=== PATIENT | female | born 1955 ===

== ENCOUNTER 2023-09-06 10:00 | Inpatient (IN) | payer OTHER ==
[~2023-09-06] VITALS: Ht 149.9 cm; Wt 51.7 kg
[2023-09-06] MEDS ORDERED: CARVEDILOL25 MG (12:50)
[2023-09-06] MEDS ORDERED: CRESTOR20 MG PO (12:50)
[2023-09-06] MEDS ORDERED: COZAAR100 MG PO (12:50)
[2023-09-13 13:41] LABS: HEMATOCRIT 30.7 % (36.0-45.00); HEMOGLOBIN 10.5 g/dL (12.0-15.00); MEAN CELL VOLUME 88.7 fL (80.00-100.00); MEAN CORPUSCULAR HEMOGLOBIN 30.4 pg (27.00-32.0); MEAN CORPUSCULAR HGB CONC 34.3 g/dl (32.0-36.0); RED BLOOD COUNT 3.46 M/uL (4.00-6.00); RED CELL DISTRIBUTION WIDTH 14.5 % (11.5-14.5)
[2023-09-13 13:53] LABS: PLATELET COUNT 129 K/uL (150-450)
[2023-09-13 14:13] LABS: ALBUMIN 2.8 gm/dL (3.4-5.0); CALCIUM 8.4 mg/dL (8.5-10.1); CREATININE SERUM 0.94 mg/dL (0.55-1.02); GFR 58.87; MAGNESIUM 1.5 mg/dL (1.8-2.4); PHOSPHOROUS 3.4 mg/dL (2.5-4.9); POTASSIUM 4.21 mEq/L (3.5-5.1)
[2023-09-14 06:54] LABS: HEMATOCRIT 31.4 % (36.0-45.00); MEAN CELL VOLUME 87.4 fL (80.00-100.00); MEAN CORPUSCULAR HEMOGLOBIN 30.7 pg (27.00-32.0); MEAN CORPUSCULAR HGB CONC 35.1 g/dl (32.0-36.0); RED BLOOD COUNT 3.59 M/uL (4.00-6.00); RED CELL DISTRIBUTION WIDTH 14.8 % (11.5-14.5)
[2023-09-14 06:57] LABS: PLATELET COUNT 110 K/uL (150-450)
[2023-09-14 07:05] LABS: ALBUMIN 2.5 gm/dL (3.4-5.0); CALCIUM 7.8 mg/dL (8.5-10.1); CREATININE SERUM 0.78 mg/dL (0.55-1.02); GFR 73.01; MAGNESIUM 1.5 mg/dL (1.8-2.4); PHOSPHOROUS 2.8 mg/dL (2.5-4.9); POTASSIUM 3.54 mEq/L (3.5-5.1)
[2023-09-15 07:35] LABS: HEMATOCRIT 30.2 % (36.0-45.00); HEMOGLOBIN 10.4 g/dL (12.0-15.00); MEAN CELL VOLUME 88.5 fL (80.00-100.00); MEAN CORPUSCULAR HEMOGLOBIN 30.5 pg (27.00-32.0); MEAN CORPUSCULAR HGB CONC 34.5 g/dl (32.0-36.0); RED BLOOD COUNT 3.41 M/uL (4.00-6.00)
[2023-09-15 07:41] LABS: PLATELET COUNT 104 K/uL (150-450)
[2023-09-15 08:24] LABS: CALCIUM 8.3 mg/dL (8.5-10.1); CREATININE SERUM 0.87 mg/dL (0.55-1.02); GFR 64.37; MAGNESIUM 1.7 mg/dL (1.8-2.4); POTASSIUM 3.78 mEq/L (3.5-5.1)
[2023-09-15 08:30] LABS: PHOSPHOROUS 1.8 mg/dL (2.5-4.9)
[2023-09-15] MEDS ORDERED: HYOSCYAMINE0.125 M1 SL (11:07)
[2023-09-15] MEDS ORDERED: INTESTINEX680 M1 PO (11:07)
== END 2023-09-15 15:19 | disposition home or self-care (01) | DRG 331 ==
LOC: O/R 09-13 07:06 → SURH 09-13 07:06 → SURG 09-13 10:00 → SURH 09-13 13:24
PROVIDERS: Internal Medicine Geriatric Medicine; ADMIT Surgery; ATTEND Surgery
PROC: 07BB4ZZ Excision of Mesenteric Lymphatic, Percutaneous Endoscopic Approach (ICD-10-PCS; 2023-09-13)
PROC: 0DTF4ZZ Resection of Right Large Intestine, Percutaneous Endoscopic Approach (ICD-10-PCS; principal; 2023-09-13 10:00)
DX: C18.0 Malignant neoplasm of cecum (principal); R59.0 Localized enlarged lymph nodes

== ENCOUNTER 2023-09-21 12:28 | Emergency (ER) | payer OTHER ==
[~2023-09-21] VITALS: Ht 147.3 cm; Wt 50.8 kg
[~2023-09-21 12:28] MED LIST: CARVEDILOL25 MG; COZAAR100 MG PO; CRESTOR20 MG PO; HYOSCYAMINE0.125 M1 SL; INTESTINEX680 M1 PO
[2023-09-21 13:43] LABS: HEMATOCRIT 31.3 % (36.0-45.00); HEMOGLOBIN 10.6 g/dL (12.0-15.00); MEAN CELL VOLUME 88.8 fL (80.00-100.00); MEAN CORPUSCULAR HEMOGLOBIN 30.2 pg (27.00-32.0); PLATELET COUNT 173 K/uL (150-450); RED BLOOD COUNT 3.53 M/uL (4.00-6.00); RED CELL DISTRIBUTION WIDTH 15.1 % (11.5-14.5)
[2023-09-21 13:47] LABS: PH,URINE 6.5 (5.0-8.0); URINE APPEARANCE Clear; URINE BILIRRUBIN Negative (NEGATIVE); URINE BLOOD Negative; URINE COLOR Yellow; URINE GLUCOSE Negative (NEGATIVE); URINE LEUKOCYTE Negative; URINE NITRATE Negative; URINE PROTEIN Negative (NEGATIVE); URINE UROBILINOGEN 0.2 E.U./dl
[2023-09-21 13:48] LABS: URINE RBC 2.8 uL (0.0-20.8); URINE WBC 2.1 uL (0.0-23.2)
[2023-09-21 14:09] LABS: ALKALINE PHOSPHATASE 138 U/L (50-136); ALT/SGPT 25 U/L (12-78); ANION GAP 10 (10.0-20.0); AST/SGOT 17 U/L (15-37); BILIRUBIN TOTAL 0.28 mg/dL (0.3-1.2); BILIRUBIN,CONJUGATED < 0.10 mg/dL (0.0-0.2); BILIRUBIN,UNCONJUGATED 0.18 mg/dL (0.0-0.6); BLOOD UREA NITROGEN 21 mg/dL (7-18); BUN CREA RATIO 22 (7.0-25.0); CALCIUM 10.2 mg/dL (8.5-10.1); CARBON DIOXIDE 29 mEq/L (21-32); CHLORIDE 106 mmol/L (98-107); CREATININE SERUM 0.94 mg/dL (0.55-1.02); GFR 58.87; GLUCOSE FASTING 110 mg/dL (65-100); OSMOLALITY SERUM 283 MOSM/KG (275-295); POTASSIUM 4.68 mEq/L (3.5-5.1); SODIUM 140 mmol/L (136-145); TOTAL PROTEIN 6.6 gm/dL (6.4-8.2)
[2023-09-21 14:34] LABS: URINE EPITHELIAL CELLS 0.4 uL (0.0-38.8)
== END 2023-09-21 16:48 | disposition home or self-care (01) ==
LOC: ER 12:28
PROVIDERS: General Practice
DX: R10.32 Left lower quadrant pain (principal); Z85.89 Personal history of malignant neoplasm of other organs and systems; I10 Essential (primary) hypertension; E78.00 Pure hypercholesterolemia, unspecified